=== PATIENT | female | born 1975 | race Caucasian/White ===

== ENCOUNTER 2019-12-22 16:14 | Emergency (ER) | payer BC, OTHER ==
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
[2019-12-22] MEDS ORDERED: Ketorolac Tromethamine 30 MG/ML VIAL ONE (16:39)
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
== END 2019-12-22 17:47 | disposition home or self-care (01) ==
LOC: ERS 16:14
DX: S80.01XA Contusion of right knee, initial encounter (principal); M25.531 Pain in right wrist; V89.2XXA Person injured in unspecified motor-vehicle accident, traffic, initial encounter
CPT/HCPCS: 96374; J1885